=== PATIENT | female | born 1945 | race Caucasian/White ===

== ENCOUNTER 2018-01-18 16:00 | Emergency (ER) | payer OTHER ==
[2018-01-18] MEDS: IBUPROFEN 600 MG TAB PO (18:59)
== END 2018-01-18 21:05 | disposition home or self-care (01) ==
LOC: FTE 16:00
DX: M54.9 Dorsalgia, unspecified (principal); I10 Essential (primary) hypertension; E11.9 Type 2 diabetes mellitus without complications; Z79.84 Long term (current) use of oral hypoglycemic drugs
CPT/HCPCS: 73510; 99284-25